=== PATIENT | female | born 1995 | race Two or more races ===

== ENCOUNTER 2025-03-05 06:30 | Day surgery (SDC) | payer OTHER, MEDICAID, SELFPAY ==
--- NOTE | 2025-02-22 14:42 | ESHP_ITS ---
RE: EDWARDO CRISTOBAL : 1995 DATE OF ADMISSION: 03/05/2025 DATE OF SURGERY: 03/05/2024 HISTORY OF PRESENT ILLNESS: This is a 29-year-old 4, para 4 who is multiparous and desires voluntary sterilization. ALLERGIES: NO KNOWN DRUG ALLERGIES. MEDICATIONS: Depo-Provera 150 mg IM every 3 months. PAST MEDICAL HISTORY: Borderline systolic hypertension, delivery. SOCIAL HISTORY: She denies any alcohol, drug use, or smoking. FAMILY HISTORY: Hypertension, hypothyroidism. OBSTETRIC HISTORY: Three previous full-term normal vaginal deliveries and one previous delivery. PAST SURGICAL HISTORY: delivery in 2023. REVIEW OF SYSTEMS: Denies any chest pain, palpitations, cough, fever, shortness of breath, or lower extremity pain. PHYSICAL EXAMINATION: VITAL SIGNS: Blood pressure is 120/73, heart rate 88, respirations 18, temperature 98.6. HEENT: Oropharynx and sclerae are clear. LUNGS: Clear to auscultation bilaterally. HEART: Regular rate and rhythm. ABDOMEN: Old Pfannenstiel scar noted. EXTREMITIES: Nontender. SKIN: No gross rashes or lesions. NEUROLOGIC: No focal deficit. ASSESSMENT: Multiparity, desire for voluntary sterilization. PLAN: Laparoscopic bilateral tubal ligation. Informed consent was obtained. The patient was made aware of the risks, complications, alternatives, benefits of the proposed procedure, and she agrees. She is aware that vasectomy is simply easier, safer, and has a lower failure rate, but her male partner declines that option. She is aware of the reversible methods of control and she declines this option. She is aware of the risk of injury to bowel or bladder, ureters, adjacent organs, pulmonary embolism, deep vein thrombosis, injury to the vessels of the abdominal wall, hematoma, abscess, wound infection, wound dehiscence, pelvic infection, reoperation to repair injury to internal organs, anesthesia complications, the possibility that a laparotomy needs to be performed to complete the procedure or control bleeding, and the possibility of the procedure is not able to be completed due to severe adhesions or technical difficulties. DT: 12:32:35 TT: 14:40:00 Ref: [id number] - TID: [id number]
[2025-03-04 07:40] VITALS: BMI 26.7
[2025-03-04 09:50] LABS: Basophils # (Auto) 0.0 Thou/mm3 (0.0-0.2); Basophils % (Auto) 0 % (0-2.5); Eosinophils # (Auto) 0.2 Thou/mm3 (0.0-0.5); Eosinophils % (Auto) 2 % (0-10); Hematocrit 41.4 % (36.0-46.0); Hemoglobin 13.3 g/dL (12.0-16.0); Immature Granulocytes Auto 0.01 Thou/mm3 (0.00-0.00); Lymphocytes # (Auto) 3.5 Thou/mm3 (1.0-4.8); Lymphocytes % (Auto) 51 % (10-50); Mean Corpuscular HGB Conc 32.1 g/dl (31.0-37.0); Mean Corpuscular Hemoglobin 29.8 pg (25.0-35.0); Mean Corpuscular Volume 93 fL (80-100); Monocytes # (Auto) 0.3 Thou/mm3 (0.0-0.8); Monocytes % (Auto) 5 % (0-12); Neutrophils # (Auto) 2.9 Thou/mm3 (1.8-7.7); Neutrophils % (Auto) 42 % (37-80); Nucleated Red Blood Cell # 0.00 Thou/mm3 (0.00-0.00); Nucleated Red Blood Cell % 0 /100 WBC (0); Platelet Count 238 Thou/mm3 (140-440); RDW Standard Deviation 46.6 fL (36.4-46.3); Red Blood Count 4.46 Miln/mm3 (4.00-5.20); White Blood Count 6.8 Thou/mm3 (3.6-11.0)
[2025-03-04 09:57] LABS: INR 1.0 (0.9-1.3); Partial Thromboplastin Time 35.5 Seconds (22.0-36.0); Prothrombin Time 11.3 Seconds (9.0-12.2)
[2025-03-04 10:01] LABS: Alanine Aminotransferase 11 U/L (10-49); Albumin, Serum 4.4 gm/dL (3.5-5.0); Albumin/Globulin Ratio 1.4 (1.2-2.2); Alkaline Phosphatase 51 U/L (46-116); Anion Gap 9 (7-16); Aspartate Amino Transferase 18 U/L (0-34); BUN/Creatinine Ratio 7 Ratio (12-20); Beta HCG,Quantitative < 1 mIU/mL (<5.0); Bilirubin,Total 0.6 mg/dL (0.3-1.2); Blood Urea Nitrogen 6 mg/dL (9-23); Calcium 9.7 mg/dL (8.3-10.6); Calcium (Corrected) 9.7 mg/dL (8.5-10.1); Carbon Dioxide 25.7 mMol/L (20.0-31.0); Chloride 108 mMol/L (98-107); Creatinine (Component) 0.9 mg/dL (0.6-1.3); Estimated Creatinine Clearance 99.0 mL/min (>60); Globulin 3.1 gm/dL (2.3-3.5); Glucose 91 mg/dL (74-106); Osmolality,Calculated 282 (275-295); Potassium 4.1 mMol/L (3.4-5.1); Sodium 143 mMol/L (136-145); Total Protein 7.5 gm/dL (5.7-8.2); eGFR > 60 See Note
[2025-03-05] VITALS (8 sets, daily range): BP systolic 107–131; BP diastolic 59–77; PULSE 60–80; RESP 13–20; TEMP 36.8–37.2; O2SAT 99–100; BMI 25.8
[2025-03-05] MEDS: RINGERS LACTATED 1000 ML 1,000 ML 30 ML IV (07:17)
--- NOTE | 2025-03-05 09:32 | PD.GYNPROC ---
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 Pre-Op diagnosis: Multiparity Desires Voluntary Sterilization Post-Op diagnosis: Multiparity Desires Voluntary Sterilization Anesthesia type: General Procedure description: After proper informed consent was obtained, and the patient made aware of the risks complications alternatives and benefits of the proposed procedure she was taken to the operating room.? She was placed in the supine position on the operating room table.? She underwent induction of general anesthesia.? She was placed in the dorsal lithotomy position.? Using sterile technique a red rubber catheter was used to drain the bladder.? The patient was prepped and draped in usual sterile fashion.? A timeout was performed.? A sponge stick was placed in the vagina. ? Attention was then turned to the abdomen where the physician regowned and gloved.? A 5 mm incision was made in the umbilical fold.? With tenting up of the abdomen a Veress needle was inserted.? Using saline intra-abdominal placement was confirmed.? The abdomen was inflated with carbon dioxide to 12 mmHg.? The Veress needle was then removed.? The Rodessa trocar with the laparoscope was carefully inserted through the umbilical incision and the peritoneal cavity entered.? The patient was placed in slight Trendelenburg.? A 5 mm incision was made in the region of the symphysis pubis in the midline approximately 2 cm above the symphysis pubis.? Through this 5 mm incision a 5 mm trocar was inserted under direct visualization of the laparoscope.? Using the Farris Geck grasper the right fallopian tube was grasped at the fimbriated end. Using the 1136 harmonic scalpel the right salpingectomy was performed and specimen sent to pathology. The left fallopian tube was grasped at the fimbriated end and using the harmonic scalpel the left salingectomy was performed. Hemostasis was achieved.? The pelvis was visualized and found to be hemostatic. The trocars were removed from the abdomen after carbon oxide was removed from the peritoneal cavity.? The incisions were closed with 4-0 Monocryl and covered with Dermabond after they were each infiltrated with Marcaine half percent with epinephrine.? Attention was then turned to the vagina where the uterine manipulator was removed and there was no bleeding at the end of the procedure. Specimen: left tube and right tube Estimated blood loss (ml): 5 Findings: Normal appearing uterus, ovaries and tubes. Complications: none Surgical staff Tab Chu CRNA Operation Date: 03/05/25 08:45 <No data on this case meets the specified criteria> Diagnosis Discharge Diagnosis (1) Sterilization procedure performed: Status: Acute Problem List Completed Was Problem List Reviewed/Reconciled?: Yes
--- NOTE | 2025-03-05 09:35 | SUR.PHASEI ---
0955 Patient arrived to recovery resting comfortably in [facility], on oxgyen 8L via oxy mask, breathing unlabored, vital signs stable, denies pain, dressing intact to abdomen; dermabond and to vaginal area; peripad, no bleeding noted, denies nausea, report received from Eliel COE/Hal ÁLVAREZ and Anatoly HARTMANN
--- NOTE | 2025-03-05 10:46 | SUR.PHASEII ---
1046 Patient meets discharge criteria from recovery, awake and alert, breathing unlabored, vital signs stable, denies pain, dressing intact; no bleeding noted, drinking 7up; tolerating well, assisted with dressing into her clothing by her , discharge instructions given to patient and patients , signed discharge instructions. Patient given all her belongings prior to discharge, transported via wheelchair and left in a private vehicle.
== END 2025-03-05 10:46 | disposition home or self-care (01) ==
PROVIDERS: PCP Family Medicine; Referring Provider Specialist; Visit Provider Specialist
PROC: (CPT 58670; principal; 2025-03-05 08:30)
DX: Z30.2 Encounter for sterilization (principal)
CPT/HCPCS: 58661; 36415; 80053; 84702; 85025; 85610; 85730; 86850; 86900; 86901; A4217; A4649; J1100; J1885; J2250; J2405; J2704; J3010; J3490; J7120; J1805